=== PATIENT | female | born 1970 | race Caucasian/White ===

== ENCOUNTER 2020-02-11 16:25 | Emergency (ER) | payer BC, SELFPAY ==
[2020-02-11 16:34] VITALS: BP 162/90; PULSE 80; RESP 18; TEMP 36.4; O2SAT 100; BMI 38.7
[2020-02-11 17:03] LABS: Basophils # 0.1 10^3/uL (0.0-0.1); Basophils % 0.4 %; Eosinophils # 0.1 10^3/uL (0.0-0.8); Eosinophils % 0.4 %; Hematocrit 42.5 % (37.0-47.0); Hemoglobin 14.3 g/dL (11.5-15.3); Lymphocytes % 15.6 %; Mean Corpuscular HGB Conc 33.6 g/dL (30.0-36.0); Mean Corpuscular Hemoglobin 30.2 pg (28.0-34.0); Mean Corpuscular Volume 89.7 fL (81-99); Mean Platelet Volume 10.4 fL (7.4-10.4); Monocytes # 0.6 10^3/uL (0.2-0.9); Monocytes % 4.9 %; Neutrophils # 9.96 10^3/uL (1.8-7.7); Neutrophils % 78.2 %; Nucleated Red Blood Cells % 0 %; Platelet Count 330 10^3/cmm (130-400); Red Blood Count 4.74 10^6/uL (4.1-5.3); White Blood Count 12.7 10^3/uL (4.0-10.0)
--- NOTE | 2020-02-11 17:16 | W.ED.ABDPA2 ---
HPI - Abdominal Pain General: Chief Complaint: Abdominal Pain Stated Complaint: ABD PAIN Time Seen by Provider: 02/11/20 17:16 History of Present Illness: HPI narrative: Patient is a 49-year-old female comes to the ED with abdominal pain, nausea, vomiting and diarrhea. Patient has a past medical history of appendectomy, diverticulitis and hypertension. Symptoms started this morning. After she ate breakfast which was a peanut butter and jelly sandwich she started having worsening abdominal pain. She describes the pain is in the right upper quadrant of the abdomen. She says it is a sharp pain and it waxes and wanes in intensity. She says that at its worst today it was rated an 8 out of 10. Currently here in the ED she rates the abdominal pain a 5 out of 10. She says she is never had pain in her abdomen like this before. She has had multiple episodes of diarrhea, but denies any blood in the stool. She is only had one episode of emesis today. Denies fever, chills, chest pain, shortness of breath, constipation, dysuria, hematuria. Patient denies any past gallbladder history or issues. Associated Symptoms: Reports diarrhea, nausea and vomiting; Denies chills, constipation, dysuria, fever(s), hematochezia and hematuria Review of Systems Const: Denies: fever(s), chills or fatigue Eyes: Denies: change in vision or eye discomfort ENMT: Denies: throat pain, odynophagia, nasal discharge or nasal congestion Card: Denies: chest pain, palpitations, edema, swelling of feet/ankles, dyspnea on exertion or orthopnea Resp: Denies: dyspnea, productive cough or non-productive cough GI: Reports: abdominal pain, nausea, vomiting and diarrhea; Denies: constipation or hematochezia : Denies: flank pain, dysuria or hematuria Musc: Denies: neck pain, back pain or extremity swelling Skin/Breast: Denies: rash or new lesions Neuro: Denies: headache(s), numbness in extremities or weakness in extremities Physical Exam Const: COMMON NORMALS: patient oriented x3, healthy appearing and alert GENERAL APPEARANCE: cooperative and in distress (appears to be in some mild discomfort due to abdominal pain.) HENMT: COMMON NORMALS: normocephalic HEAD & SCALP: normocephalic MOUTH: Normal oral and palatal mucosa present THROAT: posterior oropharynx normal and uvula midline Eye: COMMON NORMALS: Equal, round and reactive pupils present PUPIL: Yes Equal, round and reactive pupils present Neck/C-Spine: COMMON NORMALS: supple GENERAL: Yes normal visual inspection Resp: COMMON NORMALS: normal respiratory effort, No retractions, No use of accessory muscles and clear to auscultation bilaterally AUSCULTATION: clear to auscultation bilaterally Cardio: COMMON NORMALS: regular rate, regular rhythm, S1 normal heart sound present, S2 normal heart sound present, No gallops present (Cardio), No clicks present (Cardio), No murmurs present (Cardio) and Peripheral pulses 2+ throughout RATE: regular rate RHYTHM: regular rhythm HEART SOUNDS: S1 normal heart sound present and S2 normal heart sound present PERIPHERAL PULSES: Peripheral pulses 2+ throughout GI: COMMON NORMALS: Normal to inspection, nondistended, normoactive bowel sounds present, Soft to palpation and no masses PALPATION: Yes Soft to palpation and Yes Tenderness to palpation present (GI) Details: RUQ (Moderate tenderness with positive Chowdhury sign.) : COMMON NORMALS: Yes no CVA tenderness BLADDER/KIDNEY EXAM: Yes no CVA tenderness Back/Pelvis: COMMON NORMALS: no CVA tenderness Extremity: COMMON NORMALS: normal to inspection and no pedal edema Neuro: COMMON NORMALS: patient oriented x3 SENSORIUM/ORIENTATION: Yes alert GAIT: Yes Normal gait present Skin: COMMON NORMALS: no rashes or lesions noted GENERAL SKIN EXAM: no rashes or lesions noted and dry skin Course Vital Signs: Vital signs: Vital Signs Temperature 97.6 F 02/11/20 16:34 Pulse Rate 89 02/12/20 00:36 Respiratory Rate 18 02/12/20 00:36 Blood Pressure 142/72 02/12/20 00:36 Pulse Oximetry 95 02/12/20 00:36 MDM - Abdominal Pain MDM Narrative: Medical decision making narrative: Patient is a 49-year-old female who comes to the ED with abdominal pain and diarrhea. Physical exam was remarkable for right upper quadrant pain and Chowdhury sign. White blood cells 12.7. Lipase, CMP and UA were unremarkable. Ultrasound showed no acute findings. CT of the abdomen showed Mild wall thickening and enhancement of the distal and terminal ileum is most likely infectious versus inflammatory enteritis. No obstruction. Patient was given IV fluids, morphine and nausea meds and symptoms were controlled. Patient had no episodes of emesis or diarrhea while here in the ED. Patient's PCP called in a prescription for ciprofloxacin and Flagyl earlier today before coming to the ED. pt instructed to start clear liquid diet for the next 24 hours and advancing as tolerated. She was instructed to take the previously prescribed antibiotics. She was also sent home with prescription for Bentyl and Zofran. Patient was told to return to ED if symptoms worsen. Patient was discharged and told to follow-up with PCP in 7 to 10 days. Patient understood and agrees with plan. Lab Data: Attestation: I reviewed the patient's lab results. Labs: Lab Results 02/11/20 02/11/20 02/11/20 Range/Units 16:45 16:45 17:34 WBC 12.7 H (4.0-10.0) 10^3/ uL RBC 4.74 (4.1-5.3) 10^6/u L Hgb 14.3 (11.5-15.3) g/dL Hct 42.5 (37.0-47.0) % MCV 89.7 (81-99) fL MCH 30.2 (28.0-34.0) pg MCHC 33.6 (30.0-36.0) g/dL RDW 13.0 (12.1-15.1) % Plt Count 330 (130-400) 10^3/c mm MPV 10.4 (7.4-10.4) fL Neut % (Auto) 78.2 % Lymph % (Auto) 15.6 % Marshall % (Auto) 4.9 % Eos % (Auto) 0.4 % Baso % (Auto) 0.4 % Neut # (Auto) 9.96 H (1.8-7.7) 10^3/u L Lymph # (Auto) 2.0 (0.8-4.8) 10^3/u L Marshall # (Auto) 0.6 (0.2-0.9) 10^3/u L Eos # (Auto) 0.1 (0.0-0.8) 10^3/u L Baso # (Auto) 0.1 (0.0-0.1) 10^3/u L Nucleated RBC % (a uto) 0 % Nucleated RBCs # 0.0 /100WBC Sodium 140 (136-145) mmol/L Potassium 3.9 (3.5-5.1) mmol/L Chloride 104 (98-107) mmol/L Carbon Dioxide 26 (22-29) mmol/L Anion Gap 13.9 (5-19) BUN 7 (6-20) mg/dL Creatinine 0.8 (0.5-0.9) mg/dL GFR Calculation 76.6 L (90-130) mL/min Glucose 117 H (65-115) mg/dL Calculated Osmolal ity 287 (285-295) mOsm/k g Calcium 9.6 (8.5-10.5) mg/dL Total Bilirubin 0.5 (0.15-1.2) mg/dL AST 14 (0-32) U/L ALT 13 (0-33) U/L Alkaline Phosphata se 63 (35-105) IU/L Total Protein 7.2 (6.6-8.7) g/dL Albumin 4.5 (3.5-5.2) g/dL Globulin 2.7 (1.3-4.6) g/dL Lipase 26 (13-60) U/L Urine Color Yellow (Yellow) Urine Appearance Sl hazy (CLEAR) Urine pH 6 (5-7) Ur Specific Gravit y 1.015 (1.005-1.030) Urine Protein Neg (Negative) Urine Glucose (UA) Norm (Normal) Urine Ketones Negative (Negative) Urine Blood Neg (Negative) Urine Nitrate Negative (Negative) Urine Bilirubin Neg (NEGATIVE) Urine Urobilinogen Norm (Negative) mg/dL Ur Leukocyte Michelle ase 1+ H (Negative) Urine RBC 0-4 H (0-2) /hpf Urine WBC 5-10 H (0-5) /hpf Ur Squamous Epith Cells 10-15 H (0-5) Amorphous Sediment Not Reportable Urine Bacteria 2+ H (NONE) Imaging Data ^: US: Attestation: I personally reviewed and interpreted this imaging study as follows: Radiologist's impression: [address] [address] Ultrasound Report Signed Patient: Elba Balderrama Unit #: [id number] : 1970 Age/Sex: 49 / F ADM Date: 02/11/20 Loc: ER Room/Bed: Attending Dr: Ordering Provider/Ordering MD: Braxton Eagle Date of Service: 02/11/20 Procedure(s): US gall bladder [id number] Accession Number(s): [id number] Report Number: [id number] PROCEDURE INFORMATION: Exam: US Abdomen, Limited; Right Upper Quadrant Exam date and time: 02/11/2020 6:12 PM Age: 49 years old Clinical indication: Abdominal pain; Acute; Prior surgery; Surgery date: 6+ months; Surgery type: Appendix removed; Additional info: Ruq pain, n/v/d TECHNIQUE: Imaging protocol: US abdomen. Real time ultrasound with image documentation. Limited exam focused on the right upper quadrant. COMPARISON: CT abdomen pelvis w con* [id number] 12/05/2018 2:55 PM FINDINGS: Liver: Upper normal liver size measuring 15.7 cm. Normal echogenicity. Gallbladder: The gallbladder is normal with a wall thickness of 2 mm. Common bile duct: CBD 3.3 mm. Pancreas: Visualized pancreas is unremarkable. Right kidney: Normal. No mass. No hydronephrosis. Intraperitoneal space: No free peritoneal fluid. US/US gall bladder [id number] IMPRESSION: No acute finding. Dictated By: Aditya Mcclendon Signed By: Aditya Mcclendon Signed Date/Time: 02/11/201932 DD/ 31 CT Abd/Pel: Attestation: I personally reviewed and interpreted this imaging study as follows: Radiologist's impression: [place] [address] CT Scan Report Signed Patient: Elba Balderrama Unit #: [id number] : 1970 Age/Sex: 49 / F ADM Date: 02/11/20 Loc: ER Room/Bed: Attending Dr: Ordering Provider/Ordering MD: Braxton Eagle Date of Service: 02/11/20 Procedure(s): CT abdomen pelvis w con* [id number] Accession Number(s): [id number] Report Number: [id number] PROCEDURE INFORMATION: Exam: CT Abdomen And Pelvis With Contrast Exam date and time: 02/11/2020 7:20 PM Age: 49 years old Clinical indication: Abdominal pain; Acute; Prior surgery; Surgery date: 6+ months; Surgery type: Appy; Additional info: Abdominal pain, diarrhea, nausea and vomiting TECHNIQUE: Imaging protocol: Computed tomography of the abdomen and pelvis with intravenous contrast. Radiation optimization: All CT scans at this facility use at least one of these dose optimization techniques: automated exposure control; mA and/or kV adjustment per patient size (includes targeted exams where dose is matched to clinical indication); or iterative reconstruction. Contrast material: OMNI 300; Contrast volume: 95 ml; Contrast route: INTRAVENOUS (IV); COMPARISON: CT abdomen pelvis w con* [id number] 12/05/2018 2:55 PM RADIATION DOSE METRICS: Total DLP (mGy-cm): 1615.57 FINDINGS: Liver: Normal. No mass. Gallbladder and bile ducts: Normal. No calcified stones. No ductal dilation. Pancreas: Normal. No ductal dilation. Spleen: Normal. No splenomegaly. Adrenals: Normal. No mass. Kidneys and ureters: Normal. No hydronephrosis. Stomach and bowel: Diverticulosis of the descending and sigmoid colon without diverticulitis. Proximal colon is decompressed. There is mild wall thickening and enhancement of the distal and terminal ileum without obstruction. The proximal and mid small bowel appears normal. The stomach is unremarkable. Appendix: The appendix is surgically absent. Intraperitoneal space: Mild ascites in the pelvis and right lower quadrant. Vasculature: Unremarkable. No abdominal aortic aneurysm. Lymph nodes: Unremarkable. No enlarged lymph nodes. Bladder: Unremarkable as visualized. Reproductive: Fundal uterine fibroids. Bones/joints: Unremarkable. No acute fracture. Soft tissues: Unremarkable. CT/CT abdomen pelvis w con* [id number] IMPRESSION: 1. Mild wall thickening and enhancement of the distal and terminal ileum is most likely infectious versus inflammatory enteritis. No obstruction. 2. Mild nonspecific ascites in the right lower quadrant and pelvis. 3. Diverticulosis of the colon. Radiation Dose CTDIVOL = (mGy): DLP = 1615.57 (mGy-cm) Dictated By: Aditya Mcclendon Signed By: Aditya Mcclendon Signed Date/Time: 02/11/202027 DD/ 26 Discharge Plan Discharge Patient Disposition: Home, Self-Care Clinical Impression: Gastroenteritis Condition: Stable Prescriptions: New dicyclomine 20 mg tablet 20 mg PO QID Qty: 30 RF: 0 Zofran 4 mg tablet 4 mg PO Q8H PRN (Reason: nausea and vomiting) Qty: 15 RF: 0 Discharge Orders: Discharge Order (Routine); Ordered 02/11/20 Ordered By: Braxton Eagle Referrals: Braxton Jensen MD [Primary Care Provider] - Discharge Diet: Regular Discharge Activity: Resume usual activity Patient Instructions: Gastroenteritis (ED) Activity Restrictions/Additional Instructions: Follow-up with medical provider as directed in 7-10 days. Take medications as prescribed. Dicyclomine is for abdominal cramping and the odansetron is for nausea. 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 Drink plenty of fluids and stay hydrated. Return to the ER or your medical provider if condition worsens. Please read and understand discharge instructions. If any questions, please ask. Discharge Date/Time: 02/12/20 00:41 Coding Level of Care Code ED Early Childhood Teacher for Caroline Fwd Exam Comprehensive
[2020-02-11 17:18] LABS: Alanine Aminotransferase 13 U/L (0-33); Albumin Level 4.5 g/dL (3.5-5.2); Alkaline Phosphatase 63 IU/L (35-105); Anion Gap 13.9 (5-19); Aspartate Amino Transferase 14 U/L (0-32); Blood Urea Nitrogen 7 mg/dL (6-20); Calcium 9.6 mg/dL (8.5-10.5); Carbon Dioxide 26 mmol/L (22-29); Chloride 104 mmol/L (98-107); Globulin 2.7 g/dL (1.3-4.6); Glomerular Filtration Rate 76.6 mL/min (90-130); Glucose 117 mg/dL (65-115); Lipase 26 U/L (13-60); Osmolality Calculated 287 mOsm/kg (285-295); Potassium 3.9 mmol/L (3.5-5.1); Sodium 140 mmol/L (136-145); Total Bilirubin 0.5 mg/dL (0.15-1.2); Total Protein 7.2 g/dL (6.6-8.7)
--- NOTE | 2020-02-11 17:35 | USR_ITS ---
PROCEDURE INFORMATION: Exam: US Abdomen, Limited; Right Upper Quadrant Exam date and time: 02/11/2020 6:12 PM Age: 49 years old Clinical indication: Abdominal pain; Acute; Prior surgery; Surgery date: 6+ months; Surgery type: Appendix removed; Additional info: Ruq pain, n/v/d TECHNIQUE: Imaging protocol: US abdomen. Real time ultrasound with image documentation. Limited exam focused on the right upper quadrant. COMPARISON: CT abdomen pelvis w con* [id number] 12/05/2018 2:55 PM FINDINGS: Liver: Upper normal liver size measuring 15.7 cm. Normal echogenicity. Gallbladder: The gallbladder is normal with a wall thickness of 2 mm. Common bile duct: CBD 3.3 mm. Pancreas: Visualized pancreas is unremarkable. Right kidney: Normal. No mass. No hydronephrosis. Intraperitoneal space: No free peritoneal fluid. US/US gall bladder [id number] IMPRESSION: No acute finding.
[2020-02-11] MEDS: sodium chloride 0.9% 1,000 ML 999 ML IV (18:00)
[2020-02-11] MEDS: ondansetron 2 mg/ML SDV 2 mL 4 MG IVP (18:00)
[2020-02-11 18:01] VITALS: RESP 16; O2SAT 98
[2020-02-11] MEDS: morphine 4 mg/mL SDV 1 mL 2 MG IVP (18:01)
[2020-02-11 18:02] VITALS: BP 154/97; PULSE 80; RESP 16; O2SAT 99
[2020-02-11 18:38] LABS: Add Urine Microscopic? YES; Bilirubin Urine Neg (NEGATIVE); Blood Urine Neg (Negative); Glucose Urine UA Norm (Normal); Ketones Urine Negative (Negative); Leukocyte Esterase Urine 1+ (Negative); Nitrate Urine Negative (Negative); Protein Urine Neg (Negative); Specific Gravity, Urine 1.015 (1.005-1.030); Urine Appearance SL Hazy (CLEAR); Urine Color Yellow (Yellow); Urobilinogen Urine Norm (Negative); pH Urine 6 (5-7)
[2020-02-11 18:39] LABS: Add Urine Culture? No; Bacteria Urine 2+; RBC Urine 0-4 /hpf (0-2)
[2020-02-11 19:00] VITALS: BP 152/80; PULSE 63; RESP 16; O2SAT 100
--- NOTE | 2020-02-11 19:16 | PC.NURSE ---
report given to milagros foreman assumed care while at bedside pt is in nad.
--- NOTE | 2020-02-11 19:19 | CTR_ITS ---
PROCEDURE INFORMATION: Exam: CT Abdomen And Pelvis With Contrast Exam date and time: 02/11/2020 7:20 PM Age: 49 years old Clinical indication: Abdominal pain; Acute; Prior surgery; Surgery date: 6+ months; Surgery type: Appy; Additional info: Abdominal pain, diarrhea, nausea and vomiting TECHNIQUE: Imaging protocol: Computed tomography of the abdomen and pelvis with intravenous contrast. Radiation optimization: All CT scans at this facility use at least one of these dose optimization techniques: automated exposure control; mA and/or kV adjustment per patient size (includes targeted exams where dose is matched to clinical indication); or iterative reconstruction. Contrast material: OMNI 300; Contrast volume: 95 ml; Contrast route: INTRAVENOUS (IV); COMPARISON: CT abdomen pelvis w con* [id number] 12/05/2018 2:55 PM RADIATION DOSE METRICS: Total DLP (mGy-cm): 1615.57 FINDINGS: Liver: Normal. No mass. Gallbladder and bile ducts: Normal. No calcified stones. No ductal dilation. Pancreas: Normal. No ductal dilation. Spleen: Normal. No splenomegaly. Adrenals: Normal. No mass. Kidneys and ureters: Normal. No hydronephrosis. Stomach and bowel: Diverticulosis of the descending and sigmoid colon without diverticulitis. Proximal colon is decompressed. There is mild wall thickening and enhancement of the distal and terminal ileum without obstruction. The proximal and mid small bowel appears normal. The stomach is unremarkable. Appendix: The appendix is surgically absent. Intraperitoneal space: Mild ascites in the pelvis and right lower quadrant. Vasculature: Unremarkable. No abdominal aortic aneurysm. Lymph nodes: Unremarkable. No enlarged lymph nodes. Bladder: Unremarkable as visualized. Reproductive: Fundal uterine fibroids. Bones/joints: Unremarkable. No acute fracture. Soft tissues: Unremarkable. CT/CT abdomen pelvis w con* [id number] IMPRESSION: 1. Mild wall thickening and enhancement of the distal and terminal ileum is most likely infectious versus inflammatory enteritis. No obstruction. 2. Mild nonspecific ascites in the right lower quadrant and pelvis. 3. Diverticulosis of the colon. Radiation Dose CTDIVOL = (mGy): DLP = 1615.57 (mGy-cm)
[2020-02-11 19:34] VITALS: BP 168/93; PULSE 92; RESP 18; O2SAT 100
--- NOTE | 2020-02-11 19:38 | PC.NURSE ---
during pt rounding, pt requesting assistance to use restroom. Pt states she has already provided urine sample and is able to ambulate without assistance. Pt has steady gait while ambulating to restroom
[2020-02-11] MEDS: iohexol 300 mg/mL 100 mL Btl IV (20:17)
[2020-02-11] MEDS: ciprofloxacin 200 MG/100 ML PREMIX 100 MG IV (20:52)
[2020-02-11] MEDS: metoclopramide 5 mg/mL SDV 2 mL 10 MG IVP (22:15)
[2020-02-11] MEDS: metroNIDAZOLE IV 500 MG/100 ML PREMIX 100 MG IV (22:15)
[2020-02-11] MEDS: lidocaine 2% viscous 15 ML, aluminum-mag hydrox-simethicon 30 ML, sucralfate oral liq 1 GM PO (22:35)
[2020-02-12 00:36] VITALS: BP 142/72; PULSE 89; RESP 18; O2SAT 95
== END 2020-02-12 00:41 | disposition home or self-care (01) ==
PROVIDERS: Emergency Medicine; Emergency Provider Physician Assistant; PCP Family Medicine
DX: K52.9 Noninfective gastroenteritis and colitis, unspecified (principal)
CPT/HCPCS: 12345; 36415; 74177; 76705; 80053; 81001; 81003; 83690; 85025; 96365; 96367; 96375; 99283; 99284; J0744; J2270; J2405; J2765; J7030; Q9967; S0030

== ENCOUNTER 2020-03-22 09:39 | Outpatient (CLI) | payer BC, SELFPAY ==
--- NOTE | 2020-03-22 09:42 | NM_ITS ---
WS: [id number] NUCLEAR MEDICINE HIDA SCAN WITH GALLBLADDER EJECTION FRACTION HISTORY: RUQ ABDOMINAL PAIN COMPARISON: CT 02/11/2020 TECHNIQUE: The patient was intravenously injected with 8.3 mCi of TC99m Mebrofenin. Immediate imaging over the right upper quadrant was followed by 5 minute image and additional images for a total of 60 minutes. Normal uptake of radiotracer throughout the liver. Activity identified in the gallbladder at 40 minutes and well distended by 60 minutes. Activity in the proximal small bowel was seen by 20 minutes. Good washout of the radiotracer from the liver by 60 minutes. The patient then drank 8 ounces of Ensure Plus. Ejection fraction at 60 minutes was 56%. Normal GB ej ection fraction is 35-75%. Post fatty meal symptoms: None. NM/NM hepatobiliary w phar* [id number] IMPRESSION: 1. Normal HIDA scan. 2. Normal gallbladder ejection fraction.
== END 2020-03-22 09:40 | disposition home or self-care (01) ==
LOC: NM 09:40
PROVIDERS: PCP Family Medicine; Visit Provider Family Medicine
DX: R10.11 Right upper quadrant pain (principal)
CPT/HCPCS: 78227; A9537

== ENCOUNTER → 2021-10-31 14:51 | Outpatient (BNVA) | payer BC, SELFPAY | PROVIDERS: PCP Family Medicine; Referring Provider Family Medicine; Visit Provider Podiatrist Foot & Ankle Surgery | DX: M79.671 Pain in right foot (principal); M77.31 Calcaneal spur, right foot | CPT/HCPCS: 73630 ==

== ENCOUNTER → 2021-11-21 11:31 | Outpatient (BNVA) | payer BC, SELFPAY | PROVIDERS: PCP Family Medicine; Visit Provider Obstetrics & Gynecology | DX: Z12.4 Encounter for screening for malignant neoplasm of cervix (principal) | CPT/HCPCS: 87624 ==

== ENCOUNTER → 2021-12-22 10:50 | Outpatient (BNVA) | payer BC, SELFPAY | PROVIDERS: PCP Family Medicine; Visit Provider Family Medicine | DX: Z00.00 Encounter for general adult medical examination without abnormal findings (principal); Z13.220 Encounter for screening for lipoid disorders; I10 Essential (primary) hypertension; E55.9 Vitamin D deficiency, unspecified | CPT/HCPCS: 80053; 80061; 82306; 82607; 85025 ==

== ENCOUNTER → 2021-12-23 14:26 | Outpatient (BNVA) | payer BC, SELFPAY | PROVIDERS: PCP Family Medicine; Visit Provider Family Medicine | DX: Z00.00 Encounter for general adult medical examination without abnormal findings (principal); I10 Essential (primary) hypertension; Z13.220 Encounter for screening for lipoid disorders; E55.9 Vitamin D deficiency, unspecified | CPT/HCPCS: 80053; 80061; 82306; 82607; 85025 ==

== ENCOUNTER → 2022-04-03 09:16 | Outpatient (BNVA) | payer BC, SELFPAY | PROVIDERS: PCP Family Medicine; Visit Provider Family Medicine | DX: E55.9 Vitamin D deficiency, unspecified (principal); I10 Essential (primary) hypertension; E53.8 Deficiency of other specified B group vitamins; Z13.220 Encounter for screening for lipoid disorders; E78.5 Hyperlipidemia, unspecified | CPT/HCPCS: 80061; 82306; 82607 ==

== ENCOUNTER → 2023-02-01 08:21 | Outpatient (BNVA) | payer BC, SELFPAY | PROVIDERS: PCP Family Medicine; Visit Provider Family Medicine | DX: E53.8 Deficiency of other specified B group vitamins (principal); Z13.220 Encounter for screening for lipoid disorders; R73.09 Other abnormal glucose; Z51.81 Encounter for therapeutic drug level monitoring; E55.9 Vitamin D deficiency, unspecified | CPT/HCPCS: 80053; 80061; 82306; 82607; 83036; 85025 ==

== ENCOUNTER → 2023-05-24 08:14 | Outpatient (BNVA) | payer BC, SELFPAY | PROVIDERS: PCP Family Medicine; Visit Provider Family Medicine | DX: R73.03 Prediabetes (principal) | CPT/HCPCS: 83036 ==

== ENCOUNTER → 2024-02-08 08:19 | Outpatient (BNVA) | payer BC, SELFPAY | PROVIDERS: PCP Family Medicine; Visit Provider Family Medicine | DX: E53.8 Deficiency of other specified B group vitamins (principal); Z13.220 Encounter for screening for lipoid disorders; E11.9 Type 2 diabetes mellitus without complications; Z51.81 Encounter for therapeutic drug level monitoring; E55.9 Vitamin D deficiency, unspecified | CPT/HCPCS: 80053; 80061; 82306; 82607; 83036; 85025 ==

== ENCOUNTER → 2024-06-04 07:34 | Outpatient (BNVA) | payer BC, SELFPAY | PROVIDERS: PCP Family Medicine; Visit Provider Family Medicine | DX: Z51.81 Encounter for therapeutic drug level monitoring (principal); Z13.220 Encounter for screening for lipoid disorders; E11.9 Type 2 diabetes mellitus without complications; R73.03 Prediabetes; E53.8 Deficiency of other specified B group vitamins | CPT/HCPCS: 80053; 80061; 83036; 85025 ==

== ENCOUNTER → 2024-07-23 10:59 | Outpatient (BNVA) | payer BC, SELFPAY | PROVIDERS: PCP Family Medicine; Visit Provider Family Medicine | DX: R50.9 Fever, unspecified (principal) | CPT/HCPCS: 87400; 87426 ==

== ENCOUNTER → 2025-02-19 08:17 | Outpatient (BNVA) | payer BC, SELFPAY | PROVIDERS: PCP Family Medicine; Visit Provider Family Medicine | DX: Z00.00 Encounter for general adult medical examination without abnormal findings (principal); E11.9 Type 2 diabetes mellitus without complications | CPT/HCPCS: 85025 ==

== ENCOUNTER 2025-02-20 06:49 | Outpatient (CLI) | payer BC, SELFPAY ==
[2025-02-20 07:20] LABS: Hematocrit 40.3 % (36-47); Hemoglobin 13.80 g/dL (11.27-16.99); Mean Corpuscular HGB Conc 34.2 g/dL (30-55); Mean Corpuscular Hemoglobin 30.3 pg (27-33); Mean Corpuscular Volume 88.4 fl (85-98); Nucleated Red Blood Cells % 0 %; Platelet Count 264 10^3/cmm (157-399); Red Blood Count 4.56 10^6/uL (3.85-5.65); White Blood Count 6.31 10^3/uL (3.29-11.43)
[2025-02-20 07:39] LABS: Estmated Average Glucose 169; Hemoglobin A1C 7.5 % (4.0-6.0)
[2025-02-20 07:45] LABS: Alanine Aminotransferase 24 U/L (0-33); Albumin Level 4.1 g/dL (3.5-5.2); Alkaline Phosphatase 87 U/L (35-105); Anion Gap 16.9 (5-19); Aspartate Amino Transferase 17 U/L (0-32); Blood Urea Nitrogen 13 mg/dL (6-20); Calcium 8.9 mg/dL (8.5-10.5); Carbon Dioxide 23 mmol/L (22-29); Chloride 105 mmol/L (98-107); Cholesterol 130 mg/dL (0-200); Globulin 3.0 g/dL (1.3-4.6); Glucose 127 mg/dL (65-115); HDL Cholesterol 33 mg/dL (60-100); Osmolality Calculated 294 mOsm/kg (285-295); Potassium 3.9 mmol/L (3.5-5.1); Sodium 141 mmol/L (136-145); Total Protein 7.1 g/dL (6.6-8.7); Triglycerides 129 mg/dL (0-150)
[2025-02-20 08:00] LABS: Vitamin B12 1293 pg/mL (232-1245)
== END 2025-02-20 06:50 | disposition home or self-care (01) ==
PROVIDERS: PCP Family Medicine; Visit Provider Family Medicine
DX: Z00.00 Encounter for general adult medical examination without abnormal findings (principal); E11.9 Type 2 diabetes mellitus without complications
CPT/HCPCS: 36415; 80053; 80061; 82306; 82607; 83036; 85025

== ENCOUNTER 2025-03-03 07:59 | Outpatient (CLI) | payer BC, SELFPAY ==
--- NOTE | 2025-03-03 08:20 | MM_ITS ---
WS: [id number] BILATERAL 3D TOMOSYNTHESIS DIGITAL SCREENING MAMMOGRAPHY WITH CAD CLINICAL INFORMATION: Screening HISTORY: Screening mammogram. No current complaints. COMPARISON: Outside study 2021 TECHNIQUE: Bilateral CC and MLO views. FINDINGS: Scattered fibroglandular densities bilaterally. No suspicious focal mass, asymmetry, calcifications, or architectural distortion. No evidence of malignancy. MM/MM scr tomosynthesis [id number] IMPRESSION: DENSITY: There are scattered areas of fibroglandular density. BI-RADS: 1 - Negative. FOLLOW UP: 1 Year Follow-up Recommend return to annual screening mammography.
== END 2025-03-03 08:00 | disposition home or self-care (01) ==
LOC: RAD 08:01
PROVIDERS: PCP Family Medicine; Visit Provider Family Medicine
DX: Z12.31 Encounter for screening mammogram for malignant neoplasm of breast (principal); R92.323 Mammographic fibroglandular density, bilateral breasts
CPT/HCPCS: 77063; 77067

== ENCOUNTER 2025-03-25 07:58 | Emergency (ER) | payer BC, SELFPAY ==
[2025-03-25 08:12] VITALS: BP 175/106; PULSE 74; RESP 16; TEMP 36.8; O2SAT 97; BMI 41.1
--- NOTE | 2025-03-25 08:36 | ED_ITS ---
HPI - Back Pain/Injury 2 General: Chief Complaint: Back Pain/Injury Stated Complaint: R side abd pain, nausea Time Seen by Provider: 03/25/25 08:17 History of Present Illness: 55-year-old female presents emergency ro om right flank pain began overnight. She has a history of kidney stones states it does not feel similar to that. She has not noticed any dysuria or frequency some darkened urine but no hematuria. She denies any diarrhea nausea but no vomiting. Associated symptoms: Deny abdominal pain, chills, dysuria, fever(s) or urinary urgency Related Data Home Medications ?Medication ?Instructions ?Recorded ?Confirmed acetaminophen 500 mg tablet 500 mg PO Q6H PRN Fever Or Pain 03/25/25 03/25/25 (Tylenol Extra Strength) coenzyme Q10 100 mg capsule 100 mg PO DAILY 03/25/25 0 03/25/25 (CoQ-10) Previous Rx's ?Medication ?Instructions ?Recorded omega-3 acid ethyl esters 1 gram 1 cap PO BID #180 cap s 03/26/24 capsule atorvastatin 10 mg tablet 10 mg PO DAILY #90 tabs 100 02/26 losartan 25 mg tablet 25 mg PO DAILY #30 tabs 10/28 norethindrone (contraceptive) 0.35 0.35 mg PO DAILY 3 months #84 tabs 01/02/25 mg tablet (Vannesa) cholecalciferol (vitamin D3) 125 See Rx Instructions . Route 02/24/25 mcg (5,000 unit) capsule .COMPLEX #90 caps cyanocobalamin (vitamin B-12) 500 See Rx Instructions .Route 02/24/25 mcg tablet .COMPLEX #90 tabs metformin 500 mg tablet 500 mg PO BID #180 tabs 02/04 09/30 hydrocodone 5 mg-acetaminophen 325 1 tab PO Q6H PRN pa in #15 tabs 03/25/25 mg tablet pantoprazole 40 mg tablet,delayed 40 mg PO DAILY #30 t abs 03/25/25 release promethazine 25 mg tablet 25 mg PO Q6H PRN nausea and 03/25/25 vomiting #20 tabs Allergies Allergy/AdvReac Type Severity Reaction Status Date / Time azithromycin (From Zithromax Allergy ALGY-Rash Verified 12/03/23 15:34 Z-Watson) Penicillins Allergy ALGY-Rash--Can Verified 12/03/23 15:34 take Keflex Review of Systems 2 Const: Denies: fever(s) or chills Card: Denies: chest pain Resp: Denies: dyspnea GI: Denies: abdominal pain : Reports: flank pain; Denies: dysuria, urinary frequency or urinary urgency Musc: Denies: neck pain or back pain Skin/Breast: Denies: rash PFSH ED 2 PFSH: Medical History Diabetes mellitus type 2, controlled Abnormal uterine bleeding Ovarian cyst Uterine fibroid Contraceptive management Chronic hypertension Surgical History S/P appendectomy Laparoscopic procedure performed on 10/08/[address] Ragland at [facility]. During surgery minimal amount of blood was noted in the pelvis and intraoperative consult was called. Dr. Manuel apparently evaluated the patient and the bladder in the pelvis was thought to be secondary to a recently ruptured cyst. No other evidence of abnormality was noted except for the multi fibroid uterus. History of kidney surgery 2016--renal stent placed in her kidney secondary to stones; this was removed Family History Father Heart disease Diabetes Mother Hypertension Stroke Brain aneurysm Kidney disease polycystic disease Denies family history of Colon cancer Ovarian cancer Hyperlipidemia Breast cancer Uterine cancer Thyroid disease Social History Smoking and tobacco/nicotine status: never used tobacco/nicotine Alcohol intake: never Substance/Drug Use: never Physical Exam 2 Const: COMMON NORMALS: no acute distress GENERAL APPEARANCE: cooperative and comfortable ORIENTATION/CONSCIOUSNESS: Yes awake, Yes oriented to person, Yes oriented to place and Yes oriented to time HENMT: COMMON NORMALS: normocephalic, atraumatic and hearing grossly normal bilaterally HEAD & SCALP: normocephalic and atraumatic Resp: COMMON NORMALS: normal respiratory effort, No retractions, No use of accessory muscles and clear to auscultation bilaterally AUSCULTATION: clear to auscultation bilaterally Cardio: COMMON NORMALS: regular rate, regular rhythm and No murmurs present (Cardio) RATE: regular rate RHYTHM: regular rhythm GI: COMMON NORMALS: Soft to palpation and No hepatosplenomegaly present A USCULTATION: Yes normoactive bowel sounds PALPATION: Yes Soft to palpation, No Tenderness to palpation present (GI), No Guarding due to palpation present (GI) and Yes No hepatosplenomegaly present Extremity: COMMON NORMALS: normal to inspection, capillary refill normal, no clubbing, cyanosis or edema, no calf tenderness and no pedal edema Neuro: SENSORIUM/ORIENTATION: Yes oriented to person, Yes oriented to place and Yes oriented to time Skin: COMMON NORMALS: no rashes or lesions noted GENERAL SKIN EXAM: no rashes or lesions noted Course 2 Vital Signs: Vital signs: Vital Signs Temperature 98.2 F 03/25/25 08:12 Pulse Rate 81 03/25/25 10:57 Respiratory Rate 16 03/25/25 08:12 Blood Pressure 147/90 03/25/25 10:57 Pulse Oximetry 96 03/25/25 10:57 Oxygen Delivery Me thod Room Air 03/25/25 08:12 MDM - Back Pain/Injury Medical Decision Making Patient has [place] biliary colic. Reviewed findings with her CT shows cholelithiasis no elevation white count no signs of cholecystitis or hydrops. Will discharge patient home with pain medications nausea medication. F/U surgery as out pt. Medical Records I reviewed the patient's medical records. Labs I reviewed the patient's lab results. 03/25/25 08:52 03/25/25 08:52 Radiology Impressions Abdomen/Pelvis CT 03/25/25 08:50 IMPRESSION: 1. No renal calcifications or obstruction. No perinephric stranding. 2. Prior appendectomy. 3. Distal colon diverticulosis without acute diverticulitis. 4. Cholelithiasis without acute cholecystitis. 5. Fibroid uterus. Laboratory Results WBC 4.55 10^3/uL (3.29-11.43) 03/25/25 08:52 RBC 4.62 10^6/uL (3.85-5.65) 03/25/25 08:52 Hgb 13.90 g/dL (11.27-16.99) 03/25/25 08:52 Hct 42.2 % (36-47) 03/25/25 08:52 MCV 91.3 fl (85-98) 03/25/25 08:52 MCH 30.1 pg (27-33) 03/25/25 08:52 MCHC 32.9 g/dL (30-55) 03/25/25 08:52 RDW 13.0 % (12.1-15.1) 03/25/25 08:52 Plt Count 224 10^3/cmm (157-399) 03/25/25 08:52 MPV 10.6 fL (7.4-10.4) H 03/25/25 08:52 Neut % (Auto) 52.6 % 03/25/25 08:52 Lymph % (Auto) 35.4 % 03/25/25 08:52 [place] % (Auto) 9.5 % 03/25/25 08:52 Eos % (Auto) 0.9 % 03/25/25 08:52 Baso % (Auto) 0.9 % 03/25/25 08:52 Neut # (Auto) 2.40 10^3/uL (1.8-7.7) 03/25/25 08:52 Lymph # (Auto) 1.6 10^3/uL (0.8-4.8) 03/25/25 08:52 [place] # (Auto) 0.4 10^3/uL (0.2-0.9) 03/25/25 08:52 Eos # (Auto) 0.0 10^3/uL (0.0-0.8) 03/25/25 08:52 Baso # (Auto) 0.0 10^3/uL (0.0-0.1) 03/25/25 08:52 Nucleated RBC % (auto) 0 % 03/25/25 08:52 Nucleated RBCs # 0.0 /100WBC 03/25/25 08:52 Sodium 139 mmol/L (136-145) 03/25/25 08:52 Potassium 3.9 mmol/L (3.5-5.1) 03/25/25 08:52 Chloride 104 mmol/L (98-107) 03/25/25 08:52 Carbon Dioxide 22 mmol/L (22-29) 03/25/25 08:52 Anion Gap 16.9 (5-19) 03/25/25 08:52 BUN 13 mg/dL (6-20) 03/25/25 08:52 Creatinine 0.7 mg/dL (0.5-0.9) 03/25/25 08:52 GFR Calculation 87.2 mL/min (90-130) L 03/25/25 08:52 Glucose 145 mg/dL (65-115) H 03/25/25 08:52 Calculated Osmolality 291 mOsm/kg (285-295) 03/25/25 08:52 Calcium 9.3 mg/dL (8.5-10.5) 03/25/25 08:52 Total Bilirubin 0.8 mg/dL (0.15-1.2) 03/25/25 08:52 AST 18 U/L (0-32) 03/25/25 08:52 ALT 29 U/L (0-33) 03/25/25 08:52 Alkaline Phosphatase 87 U/L (35-105) 03/25/25 08:52 Total Protein 7.0 g/dL (6.6-8.7) 03/25/25 08:52 Albumin 4.2 g/dL (3.5-5.2) 03/25/25 08:52 Globulin 2.8 g/dL (1.3-4.6) 03/25/25 08:52 Urine Color Yellow (Yellow) 03/25/25 09:05 Urine Appearance Turbid (CLEAR) A 03/25/25 09:05 Urine pH 6.0 (5-7) 03/25/25 09:05 Ur Specific [place] 1.020 (1.005-1.030) 03/25/25 09:05 Urine Protein Negative (Negative) 03/25/25 09:05 Urine Glucose (UA) Negative (Normal) 03/25/25 09:05 Urine Ketones Trace (Negative) 03/25/25 09:05 Urine Blood Negative (Negative) 03/25/25 09:05 Urine Nitrate Negative (Negative) 03/25/25 09:05 Urine Bilirubin Negative (Negative) 03/25/25 09:05 Urine Urobilinogen 1.0 mg/dL (Negative) 03/25/25 09:05 Ur Leukocyte Esterase Negative (Negative) 03/25/25 09:05 Urine RBC 0-4 /hpf (0-2) H 03/25/25 09:05 Urine WBC 0-4 /hpf (0-5) H 03/25/25 09:05 Ur Squamous Epith Cells 5-10 /hpf (0-5) H 03/25/25 09:05 Amorphous Sediment Not Reportable 03/25/25 09:05 Urine Bacteria 1+ /hpf (NONE) H 03/25/25 09:05 Urine Mucus 1+ /hpf 03/25/25 09:05 All radiology interpretation(s) finalized by discharge Discharge Plan Discharge Patient Disposition: Home Clinical Impression: Biliary colic, Cholelithiasis Condition: Stable Prescriptions: New hydrocodone-acetaminophen 5-325 mg tablet 1 tab PO Q6H PRN (Reason: pain) Qty: 15 0RF promethazine 25 mg tablet 25 mg PO Q6H PRN (Reason: nausea and vomiting) Qty: 20 0RF pantoprazole 40 mg tablet,delayed release (DR/EC) 40 mg PO DAILY Qty: 30 0RF No Action cyanocobalamin (vitamin B-12) 500 mcg tablet See Rx Instructions .ROUTE .COMPLEX Qty: 90 3RF Dose Instruction: TAKE 1 TABLET BY MOUTH EVERY DAY Rx Instructions: TAKE 1 TABLET BY MOUTH EVERY DAY metformin 500 mg tablet 500 mg PO BID Qty: 180 3RF cholecalciferol (vitamin D3) 125 mcg (5,000 unit) capsule See Rx Instructions .ROUTE .COMPLEX Qty: 90 3RF Dose Instruction: take 1 capsule BY MOUTH EVERY DAY Rx Instructions: take 1 capsule BY MOUTH EVERY DAY omega-3 acid ethyl esters 1 gram capsule 1 cap PO BID Qty: 180 3RF atorvastatin 10 mg tablet 10 mg PO DAILY Qty: 90 3RF losartan 25 mg tablet 25 mg PO DAILY Qty: 30 12RF norethindrone (contraceptive) [Vannesa] 0.35 mg tablet 0.35 mg PO DAILY 90 Days Qty: 84 0RF coenzyme Q10 [CoQ-10] 100 mg Capsule 100 mg PO DAILY acetaminophen [Tylenol Extra Strength] 500 mg Tablet 500 mg PO Q6H PRN (Reason: Fever Or Pain) Discharge Orders: Discharge ED (Routine); Ordered 03/25/25 Ordered By: Easton Rosenberg Referrals: Braxton Jensen MD [Primary Care Provider, Family Practice] Discharge Diet: Clear Liquid Patient Instructions: Biliary Colic (ED), Abdominal Pain (ED), Opioid Safety, Pain Management, Patient Portal & Ruben Instructions Activity Restrictions/Additional Instructions: Thank you for choosing [facility] for your healthcare needs today. It is very important that you follow up as instructed or that you return to the Emergency Department should you have concerns or if your condition changes or worsens in any way. You were seen in the emergency room as right upper quadrant abdominal pain radiating to your back there is no sign of kidney stones there is sign of gallstones suspect your pain may be biliary colic. Avoid fatty foods greasy foods fried foods citrus foods red meats tomato-based products and dairy products as all of these things are likely to irritate your gallbladder. She do clear liquid diet for the next 2 days then advance as tolerated. floral manager will make emergency room to follow-up with surgery. You are given hydrocodone for pain promethazine for nausea and vomiting start pantoprazole 40 mg once daily. Print Language: Vietnamese Coding Level of Care Code ED Online Advertising Manager for Caroline Jose
--- NOTE | 2025-03-25 08:50 | CT_ITS ---
WS: [id number] CT ABDOMEN AND PELVIS NONCONTRAST HISTORY: R flank pain TECHNIQUE: Imaging performed through the abdomen and pelvis. Coronal and sagittal reformats are submitted. All CT scans at [facility] use at least one of these dose optimization techniques: automated exposure control; mA and/or kV adjustment per patient size (includes targeted exams where dose is matched to clinical indication); or iterative reconstruction. DLP: 1031.34 mGy.cm COMPARISON: 02/11/2020 Lower thorax: Lung bases are clear. Visualized heart is normal. No hiatal hernia. Liver: Normal size liver. No mass or bile duct dilatation. Gallbladder: Normally distended gallbladder with stone. No pericholecystic fluid. Normal common bile duct. Pancreas: Normal size and attenuation. Normal pancreatic duct. No pancreatitis or mass. Spleen: Normal. Adrenal glands: Normal. No mass. Right kidney: Normal size kidney with no mass or hydronephrosis. Left kidney: Normal size kidney with no mass or hydronephrosis. Aorta: Normal abdominal aorta, no aneurysm or atherosclerosis. No free fluid, intraperitoneal air or significant lymphadenopathy. GI tract: Prior appendectomy. No GI tract obstruction. Moderate distal colon diverticular burden without acute diverticulitis. Abdominal wall: Small umbilical hernia contains fat only. Pelvis: Fibroid uterus. Uterus is enlarged and lobular. One of the fibroids is heavily calcified. No free fluid. Osseous structures: No change inferior pubic rami. CT/CT kidney stone [id number] IMPRESSION: 1. No renal calcifications or obstruction. No perinephric stranding. 2. Prior appendectomy. 3. Distal colon diverticulosis without acute diverticulitis. 4. Cholelithiasis without acute cholecystitis. 5. Fibroid uterus.
[2025-03-25 09:07] LABS: Hematocrit 42.2 % (36-47); Hemoglobin 13.90 g/dL (11.27-16.99); Mean Corpuscular HGB Conc 32.9 g/dL (30-55); Mean Corpuscular Hemoglobin 30.1 pg (27-33); Mean Corpuscular Volume 91.3 fl (85-98); Nucleated Red Blood Cells % 0 %; Platelet Count 224 10^3/cmm (157-399); Red Blood Count 4.62 10^6/uL (3.85-5.65); White Blood Count 4.55 10^3/uL (3.29-11.43)
[2025-03-25 09:23] LABS: Glucose Urine UA Negative (Normal); Nitrate Urine Negative (Negative); Specific Gravity, Urine 1.020 (1.005-1.030)
[2025-03-25 09:28] LABS: Alanine Aminotransferase 29 U/L (0-33); Albumin Level 4.2 g/dL (3.5-5.2); Alkaline Phosphatase 87 U/L (35-105); Aspartate Amino Transferase 18 U/L (0-32); Blood Urea Nitrogen 13 mg/dL (6-20); Calcium 9.3 mg/dL (8.5-10.5); Carbon Dioxide 22 mmol/L (22-29); Chloride 104 mmol/L (98-107); Creatinine Clr Calc Pharmacy 102.8088; Globulin 2.8 g/dL (1.3-4.6); Glucose 145 mg/dL (65-115); Osmolality Calculated 291 mOsm/kg (285-295); Sodium 139 mmol/L (136-145); Total Protein 7.0 g/dL (6.6-8.7)
[2025-03-25 09:31] LABS: Anion Gap 16.9 (5-19); Potassium 3.9 mmol/L (3.5-5.1)
[2025-03-25 09:50] LABS: Add Urine Microscopic? YES; UA Manual Slide Review YES
[2025-03-25] MEDS: morphine 4 mg/mL SDV 1 mL IVP (10:15)
[2025-03-25 10:27] VITALS: BP 152/84; PULSE 71; O2SAT 96
[2025-03-25 10:57] VITALS: BP 147/90; PULSE 81; O2SAT 96
--- NOTE | 2025-03-26 09:48 | DCPLANNER ---
messaged gen surg for er f/u
== END 2025-03-25 11:05 | disposition home or self-care (01) ==
PROVIDERS: Emergency Provider Family Medicine; PCP Family Medicine
DX: K80.50 Calculus of bile duct without cholangitis or cholecystitis without obstruction (principal); K80.20 Calculus of gallbladder without cholecystitis without obstruction; Z79.84 Long term (current) use of oral hypoglycemic drugs; E11.9 Type 2 diabetes mellitus without complications; I10 Essential (primary) hypertension
CPT/HCPCS: 74176; 80053; 81001; 85025; 96374; 96375; 99285; J1885; J2270

== ENCOUNTER 2025-04-22 06:44 | Outpatient (CLI) | payer BC, SELFPAY ==
--- NOTE | 2025-04-22 07:00 | US_ITS ---
WS: [id number] RIGHT UPPER QUADRANT ULTRASOUND HISTORY: Gallstone COMPARISON: 02/11/2020 Liver: 16.5 cm in length. Mild hepatic steatosis. Normal size liver. Portal Vein: Normal hepatopetal flow with monophasic waveform. Gallbladder: Normally distended gallbladder with cholelithiasis. No wall thickening. CBD: 0.3 cm Pancreas: Partially obscured. Right kidney: 10.6 cm in length. Normal size and echogenicity. No hydronephrosis or mass. Aorta and IVC: Unremarkable abdominal aorta and IVC. No ascites. US/US gall bladder [id number] IMPRESSION: 1. Cholelithiasis without evidence for acute cholecystitis. 2. Mild hepatic steatosis.
--- NOTE | 2025-04-22 07:04 | XR_ITS ---
WS: [id number] XR thoracic spine 3V* [id number] REASON FOR EXAM: Thoracic radiculopathy FINDINGS: Normal thoracic spine curvatures. No vertebral body compression deformity or focal lesion. Mild disc space narrowing with mild endplate sclerosis and osteophytosis in the midthoracic spine. XR/XR thoracic spine 3V* [id number] IMPRESSION: Mild degenerative spondylosis.
--- NOTE | 2025-04-22 07:04 | XR_ITS ---
WS: [id number] XR lumbar spine 6V w f/e [id number] REASON FOR EXAM: Lumbar radiculopathy FINDINGS: Mild straightening of the normal lordosis of the lumbar spine. No compression deformity or focal lesion of the lumbar vertebrae. Moderate narrowing of the L5-S1 disc space with mild endplate sclerosis and osteophytosis. No spondylolysis or significant neutral listhesis. No significant vertebral body movement with flexion or extension. XR/XR lumbar spine 6V w f/e [id number] IMPRESSION: Lumbar degenerative spondylosis as above.
== END 2025-04-22 06:45 | disposition home or self-care (01) ==
LOC: RAD 06:45
PROVIDERS: PCP Family Medicine; Visit Provider Family Medicine
DX: R10.9 Unspecified abdominal pain (principal); M54.14 Radiculopathy, thoracic region; M54.16 Radiculopathy, lumbar region; M25.78 Osteophyte, vertebrae; M51.34 Other intervertebral disc degeneration, thoracic region; M40.56 Lordosis, unspecified, lumbar region; M51.362 Other intervertebral disc degeneration, lumbar region with discogenic back pain and lower extremity pain; K80.20 Calculus of gallbladder without cholecystitis without obstruction; K76.0 Fatty (change of) liver, not elsewhere classified
CPT/HCPCS: 72072; 72114; 76705

== ENCOUNTER 2025-04-27 14:35 | Outpatient (CLI) | payer BC, SELFPAY ==
--- NOTE | 2025-04-27 14:45 | US_ITS ---
WS: [id number] US pelvic complete* [id number] HISTORY: Fibroid uterus COMPARISON: None available. Patient refused transvaginal imaging. Uterus: 9.8 cm x 4.1 cm x 4.0 cm. Slightly lobulated appearance of the uterus. Suspect fibroids but these could not be accurately described or identified by transabdominal imaging. Endometrium: 0.8 cm. Limited. Neither ovary is identified by transabdominal imaging. No adnexal mass. No free fluid in the cul-de-sac. US/US pelvic complete* [id number] IMPRESSION: 1. Very limited imaging of the pelvic structures as only transabdominal imagin g was submitted. Patient refused transvaginal imaging. 2. Slightly lobular contour of the uterus. Suspect fibroids but discrete fibro ids cannot be identified on transabdominal imaging. 3. Neither ovary identified.
== END 2025-04-27 14:36 | disposition home or self-care (01) ==
PROVIDERS: PCP Family Medicine; Visit Provider Family Medicine
DX: R19.00 Intra-abdominal and pelvic swelling, mass and lump, unspecified site (principal); N85.8 Other specified noninflammatory disorders of uterus
CPT/HCPCS: 76856